=== PATIENT | male | born 1995 | race Two or more races ===

== ENCOUNTER 2016-11-25 12:35 | Emergency (ER) | payer OTHER ==
[2016-11-25] MEDS ORDERED: DIPHTH,PERTUSS(ACELL),TET VAC 0.5 ML VIAL IM V ONE (13:37)
== END 2016-11-25 14:20 | disposition home or self-care (01) ==
LOC: ED 12:35
DX: S02.2XXA Fracture of nasal bones, initial encounter for closed fracture (principal); Z23 Encounter for immunization; W22.8XXA Striking against or struck by other objects, initial encounter; Y92.210 Daycare center as the place of occurrence of the external cause; Y99.0 Civilian activity done for income or pay